=== PATIENT | female | born 1955 | race Caucasian/White ===

== ENCOUNTER 2020-03-03 06:31 | Emergency (ER) | payer OTHER, BC ==
[~2020-03-03] VITALS: Ht 170.2 cm; Wt 85.3 kg
[2020-03-03] MEDS ORDERED: TYLENOL325 M1 PO (08:54)
[2020-03-03] MEDS ORDERED: NAPROXEN250 MG PO (08:54)
== END 2020-03-03 09:28 | disposition home or self-care (01) ==
LOC: ED 06:31
DX: S20.211A Contusion of right front wall of thorax, initial encounter (principal); I10 Essential (primary) hypertension; F17.210 Nicotine dependence, cigarettes, uncomplicated; Z91.040 Latex allergy status; V59.9XXA Occupant (driver) (passenger) of pick-up truck or van injured in unspecified traffic accident, initial encounter; Y93.89 Activity, other specified; Y92.89 Other specified places as the place of occurrence of the external cause; Y99.8 Other external cause status